=== PATIENT | male | born 1995 | race Caucasian/White ===

== ENCOUNTER 2018-02-26 19:00 | Emergency (ER) | payer OTHER ==
[~2018-02-26] VITALS: Ht 170.2 cm; Wt 99.1 kg
[~2018-02-26 19:00] MED LIST: CORLANOR5 MG PO; DIGOXIN250 MCG PO; EPLERENONE25 MG PO; LANOXIN 0.120.125 M1 PO; LASIX 20 MG TAB20 MG PO; LISINOPRIL5 MG PO; LOPRESSOR25 PO; NEXIUM20 MG PO; NEXIUM40 MG PO; PERCOCET 5-3251 EACH PO; XARELTO20 MG PO; ZOFRAN ODT4 MG PO; ZOFRAN ODT4 MG SUBLING
[2018-02-26] MEDS ORDERED: ASPIR 8181 MG PO (19:09)
[2018-02-26 19:31] LABS: ABSOLUTE EOSINOPHILS 0.2 thou/uL (0.0-0.7); ABSOLUTE LYMPHOCYTES 2.2 thou/uL (0.8-5.3); ABSOLUTE MONOCYTES 0.5 thou/uL (0.0-1.2); ABSOLUTE NEUTROPHILS 4.2 thou/uL (1.6-8.1); BASOPHILS 0.4 %; EOSINOPHILS 2.7 %; HEMATOCRIT 42.3 % (42.0-52.0); HEMOGLOBIN 14.6 gm/dL (14.0-18.0); LYMPHOCYTES 30.8 %; MCH 30.1 pg (26.0-34.0); MCHC 34.6 g/dL (28.0-37.0); MCV 87.1 fL (80.0-100.0); MONOCYTES 6.6 %; MPV 10.8 fl. (7.2-11.1); NUCLEATED RBCS 0 /100WBC; PLATELET COUNT* 173 thou/uL (150-400); POLYS 59.5 %; RBC 4.85 mil/uL (4.50-6.00); RDW-CV 13.1 % (10.5-14.5); WBC 7.1 thou/uL (4.0-11.0)
[2018-02-26 19:35] LABS: CALCIUM 8.8 mg/dL (8.5-10.1); POTASSIUM 4.2 mmol/L (3.5-5.1)
[2018-02-26 19:49] LABS: INFLUENZA A ANTIGEN None Detected (None Detect); INFLUENZA B ANTIGEN None Detected (None Detect)
[2018-02-26 19:51] LABS: ALBUMIN 3.7 g/dL (3.4-5.0); TOTAL BILIRUBIN 0.5 mg/dL (<0.1-1.0); TOTAL PROTEIN 7.3 g/dL (6.4-8.2)
[2018-02-26] MEDS ORDERED: MEDROLDOSEPACK PO (20:06)
[2018-02-26 20:27] VITALS: BP 121/62
--- NOTE | 2018-02-27 11:10 | EKG ---
[place] [address] ELECTROCARDIOGRAM REPORT Name: JETTLACHELLE Ben Room: [facility]#: [id number] Admission: 02/26/18 Attend Phys: Discharge: 02/26/18 Date of : [birth year] Report #: [id number] THIS REPORT FOR: //name// [facility] ED Test Date: 2018-02-26 Test Time: 19:13:23 Pat Name: LACHELLE FRAUSTO Department: Room: Gender: M Senior Financial Reporting Accountant: : 1995 Requested By: Fanta Martinez Order Number: [id number] MD: Henry Vanegas Measurements Intervals [place] Rate: 54 P: -2 [place]: 158 QRS: 62 QRSD: 115 T: 56 QT: 377 QTc: 358 Interpretive Statements Sinus rhythm Nonspecific intraventricular conduction delay Low voltage, precordial leads Compared to ECG 01/17/2016 06:17:18 Intraventricular conduction delay now present Low QRS voltage now present Atrial abnormality no longer present Left posterior fascicular block no longer present T-wave abnormality no longer present Electronically Signed On 02-27-2018 11:09:49 [employer]IL [employer] by Henry Vanegas [email or web address] <ELECTRONICALLY SIGNED> By: Henry Vanegas MD, FACC 02/27/18 1109 12 12 Henry Vanegas MD, FACC /EPI
== END 2018-02-26 20:28 | disposition home or self-care (01) ==
LOC: M.ERS 19:00
PROVIDERS: Personal Emergency Response Attendant
DX: Z51.81 Encounter for therapeutic drug level monitoring (principal); G51.0 Bell's palsy; I50.9 Heart failure, unspecified; Z95.0 Presence of cardiac pacemaker; Z90.49 Acquired absence of other specified parts of digestive tract; Z91.09 Other allergy status, other than to drugs and biological substances

== ENCOUNTER → 2018-03-02 | Outpatient (CLI) | payer OTHER ==
[~2018-03-02] MED LIST changes: +ASPIR 8181 MG PO; +MEDROLDOSEPACK PO
== END ==
LOC: M.LAB 13:59
DX: I42.9 Cardiomyopathy, unspecified (principal)

== ENCOUNTER → 2018-03-20 | Outpatient (CLI) | payer OTHER ==
[2018-03-22 16:10] LABS: ANA INTERPRETATION Negative (Negative)
== END ==
LOC: M.LAB 15:53
PROVIDERS: Psychiatry & Neurology Neuromuscular Medicine
DX: G51.0 Bell's palsy (principal)

== ENCOUNTER → 2018-03-31 | Outpatient (CLI) | payer OTHER | LOC: M.MRI 14:25 | DX: G51.0 Bell's palsy (principal); Z86.79 Personal history of other diseases of the circulatory system; Z95.0 Presence of cardiac pacemaker ==